=== PATIENT | male | born 1970 | race Caucasian/White ===

== ENCOUNTER 2016-11-18 08:04 | Emergency (ER) | payer BC, OTHER ==
[2016-11-18 08:16] VITALS: BP 153/100
--- NOTE | 2016-11-18 08:31 | UC ---
Throat Pain/Nasal Deion HPI - HPI Summary HPI Summary: The patient comes in today for: 1. Fever, headache, sore throat, swollen tongue, dizzy, weak, Onset: Sore throat 2 days ago. Palliative/provocative: Warm salt water helped. Baking soda and water helped. Quality: [place] Region: Posterior pharynx. Severity: 10 Time: Constant. Associated symptoms: Recent oral sex: Fiance of three years. She is not known to have any problems. He has a monogamous relationship. No known HPV or herpes or discharge at this time. 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 Fever: 2 days ago--no temperature taken. Headache: Center of the head. Present now, but he has not taken anything for it. Dyspnea: None at this time. "Feels like my system is 'suppress' at this time. " Dizzy definition: "euphoric." He has not taken anything that would make him feel euphoric. Weak: He states that he feels "blah." Rhinitis: None. Cough: None. * - History of Current Complaint Chief Complaint: UCGeneralIllness Stated Complaint: HEADACHE, SORE THROAT, AND FEVER Time Seen by Provider: 11/18/16 08:17 Hx Obtained From: Patient - Allergies/Home Medications Allergies/Adverse Reactions: Allergies Allergy/AdvReac Type Severity Reaction Status Date / Time Penicillins Allergy Severe Shortness Verified 12/13/15 13:15 of Breath Erythromycin Allergy Intermediate Shortness Verified 12/13/15 13:15 of Breath Sulfa Antibiotics Allergy Intermediate Shortness Verified 12/13/15 13:15 of Breath NSAIDs AdvReac Intermediate Anxiety Verified 12/13/15 13:15 SSRIs Allergy Severe EXTREME Uncoded 12/13/15 13:15 ANXIETY antidepressant AdvReac Intermediate dizzy Uncoded 12/13/15 13:15 PMH/Surg Hx/FS Hx/Imm Hx Previously Healthy: Yes Endocrine History Of: Denies: Diabetes, Thyroid Disease, Hyperthyroidism, Hypothyroidism, Dyslipidemia Cardiovascular History Of: Denies: Cardiac Disorders, Hypertension, Pacemaker/ICD, Myocardial Infarction , Congestive Heart Failure, Atrial Fibrillation, Deep Vein Thrombosis, Bleeding Disorders Respiratory History Of: Denies: COPD, Asthma, Bronchitis, Pneumonia, Pulmonary Embolism GI/ History Of: Denies: Gastroesophageal Reflux, Ulcer, Gastrointestinal Bleed, Gall Bladder Disease, Kidney Stones, Diverticulitis, Renal Disease, Urosepsis Neurological History Of: Denies: TIA, CVA, Dementia, Seizures, Migraine Psychological History Of: Denies: Anxiety, Depression, Bipolar Disorder, Schizophrenia, Post Traumatic Stress Disorder Cancer History Of: Denies: Lung Cancer, Colorectal Cancer, Breast Cancer, Prostate Cancer, Cervical Cancer Other History Of: Negative For: HIV, Hepatitis B, Hepatitis C, Anticoagulant Therapy - Surgical History Surgical History: None - Family History Known Family History: Positive: Cardiac Disease, Hypertension - Social History Occupation: Employed Full-time Alcohol Use: None Substance Use Type: None Smoking Status (MU): Former Smoker Have You Smoked in the Last Year: No When Did the Patient Quit Smoking/Using Tobacco: 3 YRS AGO - Immunization History Most Recent Tetanus Shot: utd Review of Systems Skin: Rash - Present for two weeks. He started his present job 4 weeks ago. Eyes: Negative ENT: Sore Throat Respiratory: Negative Cardiovascular: Negative Gastrointestinal: Negative Genitourinary: Negative All Other Systems Reviewed And Are Negative: Yes Physical Exam Triage Information Reviewed: Yes Appearance: Well-Appearing, No Pain Distress, Well-Nourished Vital Signs: Initial Vital Signs Temp 98.3 F 11/18/16 08:10 Pulse 74 11/18/16 08:10 Resp 18 11/18/16 08:10 BP 153/100 11/18/16 08:10 Pulse Ox 99 11/18/16 08:10 Vital Signs Reviewed: Yes Eyes: Positive: Conjunctiva Clear. Negative: Discharge ENT: Positive: Hearing grossly normal. Negative: Pharyngeal erythema, Nasal congestion, Nasal drainage, TM bulging, TM dull, TM red, Tonsillar swelling, Tonsillar exudate Dental: Positive: Other: - No lesions seen such as leukoplakia or thrush. No marked lesions of the tonque except possible isolated papillitis.. Negative: Gross Decay/Caries @, Dental Fracture @ Neck: Positive: Supple, Nontender, No Lymphadenopathy, Other: - Patient has a stocky body habitus. No marked tenderness to palpation of the thyroid, but the anterior neck feels more full than expected even in this stocky male.. Negative : Nuchal Rigidity Respiratory: Positive: Lungs clear, No respiratory distress, No accessory muscle use. Negative: Crackles, Wheezing Cardiovascular: Positive: RRR, No Murmur Abdomen Description: Positive: Nontender, No Organomegaly, Soft. Negative: Distended, Guarding Musculoskeletal: Positive: Strength Intact, ROM Intact, No Edema Neurological: Positive: Alert, Muscle Tone Normal Psychological: Positive: Age Appropriate Behavior, Consolable Skin: Positive: rashes - She has slight erythematous, macular rash of the distal forearms. These rashes are several in number and are less than 1 cm and slightly scaly. Diagnostics - Laboratory Diagnostic Studies Completed/Ordered: Rapid strep: (-) Throat Pain/Nasal Course/Dx - Differential Dx/Diagnosis Differential Diagnosis/HQI/PQRI: Laryngitis, Stanley's Angina, Pharyngitis, Tonsillitis Provider Diagnoses: Viral upper respiratory infection. Transient lingual papillitis. Asteatotic dermatitis. Neck fullness Discharge - Discharge Plan Condition: Stable Disposition: HOME Patient Education Materials: Upper Respiratory Infection (ED) Forms: *Work Release Referrals: Kartik Ruiz MD [Primary Care Provider] - Additional Instructions: Please see your primary care provider in the next week to see how well you are doing. Your provider can see how well your treatments are doing. And then you can be evaluated for your neck fullness. It would be important to make sure that you don't have an enlarged thyroid (thyroiditis). Please take the lidocaine as directed for your sore throat and transient lingual papillitis Please use only Dove soap while bathing.
== END 2016-11-18 09:28 | disposition home or self-care (01) ==
LOC: UCEAST 08:04
DX: J06.9 Acute upper respiratory infection, unspecified (principal); K14.0 Glossitis; L30.8 Other specified dermatitis; R22.1 Localized swelling, mass and lump, neck; Z88.1 Allergy status to other antibiotic agents; Z88.6 Allergy status to analgesic agent; Z88.0 Allergy status to penicillin; Z88.2 Allergy status to sulfonamides; Z88.8 Allergy status to other drugs, medicaments and biological substances; Z87.891 Personal history of nicotine dependence
CPT/HCPCS: 87651; 99212; G0463

== ENCOUNTER 2016-12-20 18:08 | Emergency (ER) | payer BC ==
[2016-12-20 18:29] VITALS: BP 143/95
[2016-12-20] MEDS ORDERED: diPHENhydraMINE IV* 50 MG/ML 1 ml VIAL (BENADRYL) IV ONE (18:53)
[2016-12-20] MEDS ORDERED: Famotidine IV* 10 MG/ML 2 ML (20 mg) IV SLOW PU ONE (18:54)
[2016-12-20] MEDS ORDERED: methylPREDNISolone SOD SUCC* 125 MG 2 ML VIAL IV ONE (18:54)
--- NOTE | 2016-12-21 16:11 | UC ---
Megan Joy Erika, scribed for Karmen Harrison MD on 12/20/16 at 1854 . General HPI - HPI Summary HPI Summary: Patient is a 46-year-old male presenting to [facility] with a CC of intermittent tongue and throat swelling. Patient reports symptoms for the past 4 days, including headache, dizziness lightheadedness, numbness of the head and sometimes feet, disorientation, nasal congestion, and sinus congestion. Patient also reports feeling an irregular heart beat. Pt reports that these symptoms have been worsening. Today at noon, pt began to notice the sensation of intermittent tongue and throat swelling. Pt did not have a flu shot this year. 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 Patient was seen here for similar symptoms on , which resolved after about 4 days. Pt with multiple allergies, is concerned about possible allergic reaction. 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 SO Onset/Duration: Gradual Onset, Lasting Days, Still Present Timing: Constant Current Severity: Moderate Pain Intensity: 8 Associated Signs & Symptoms: Positive: Dizziness, Headache, Other - perceived tongue and throat swelling Similar Episode/Dx as: viral syndrome Related Hx: Recent Illness - 11/18/16 - Allergy/Home Medications Allergies/Adverse Reactions: Allergies Allergy/AdvReac Type Severity Reaction Status Date / Time Penicillins Allergy Severe Anaphylatic Verified 12/20/16 18:29 Shock Erythromycin Allergy Intermediate Anaphylatic Verified 12/20/16 18:29 Shock Sulfa Antibiotics Allergy Intermediate Anaphylatic Verified 12/20/16 18:29 Shock NSAIDs AdvReac Intermediate Anxiety Verified 12/20/16 18:29 SSRIs Allergy Severe EXTREME Uncoded 12/13/15 13:15 ANXIETY antidepressant AdvReac Intermediate dizzy Uncoded 12/13/15 13:15 Home Medications: Home Medications Acetaminophen TAB* [Tylenol TAB*] 325 mg PO PRN 12/20/16 [History] PMH/Surg Hx/FS Hx/Imm Hx Previously Healthy: No - multiple allergies - Surgical History Surgical History: None - Family History Known Family History: Positive: Cardiac Disease, Hypertension - Social History Occupation: Employed Full-time Lives: With Family Alcohol Use: None Substance Use Type: None Smoking Status (MU): Former Smoker Have You Smoked in the Last Year: No When Did the Patient Quit Smoking/Using Tobacco: 3 YRS AGO - Immunization History Most Recent Tetanus Shot: utd Review of Systems Constitutional: Negative Skin: Negative Eyes: Negative ENT: Other - tongue and throat swelling, nasal congestion, sinus congestion Respiratory: Negative Cardiovascular: Palpitations Gastrointestinal: Negative Genitourinary: Negative Motor: Negative Neurovascular: Negative Musculoskeletal: Negative Neurological: Headache, Numbness - head and feet, Other - lightheadedness, dizziness, disorientation Psychological: Negative All Other Systems Reviewed And Are Negative: Yes Physical Exam Triage Information Reviewed: Yes Appearance: No Pain Distress, Well-Nourished, Ill-Appearing - mildly Vital Signs: Initial Vital Signs Temp 97.1 F 12/20/16 18:18 Pulse 72 12/20/16 18:18 Resp 18 12/20/16 18:18 BP 143/95 12/20/16 18:18 Pulse Ox 99 12/20/16 18:18 Vital Signs Reviewed: Yes Eyes: Positive: Conjunctiva Clear ENT: Positive: Pharynx normal, TMs normal, Other: - No uvula edema, pharynx clear, tongue does not appear swollen, speech is clear, no throat or neck swelling, no facial swelling Neck: Positive: Supple, Nontender, No Lymphadenopathy Respiratory: Positive: Lungs clear, Normal breath sounds, No respiratory distress, No accessory muscle use Cardiovascular: Positive: RRR, No Murmur, Pulses Normal, Brisk Capillary Refill Abdomen Description: Positive: Nontender, Soft Musculoskeletal: Positive: Strength Intact, ROM Intact, No Edema Neurological: Positive: Alert, Muscle Tone Normal, Other: - Moves all extremities well. No focal deficit. Psychological Exam: Normal Skin Exam: Normal Skin: Negative: rashes Diagnostics - Laboratory Diagnostic Studies Completed/Ordered: Rapid strep negative. Influenza A&B negative. Re-Evaluation - Re-Evaluation First Eval Re-Evaluation Time: 20:07 Change: Improved Comment: Pt is improved after Benadryl, Pepcid, and Solumedrol treatments. Subjective tongue swelling is gone, head congestion improved. Course/Dx - Course Course Of Treatment: SoluMedrol 125, benadryl 50mg (given IV, so no risk of red dye allergy), pepcid 20mg given IV - Differential Dx - Multi-Symptom Differential Diagnoses: Metabolic Abnormality, Other - anaphylaxis, allergic reaction, influenza, strep, angioedema Provider Diagnoses: acute allergic reaction. upper respiratory infection Discharge - Discharge Plan Condition: Stable Disposition: HOME Prescriptions: Famotidine TAB 40 MG(NF) [Pepcid TAB 40 MG(NF)] 40 mg PO DAILY #5 tab predniSONE TAB* [Deltasone TAB*] 40 mg PO DAILY #10 tab Patient Education Materials: General Allergic Reaction (ED) Forms: *Work Release Referrals: No Primary Care Phys,NOPCP [Primary Care Provider] - Jeramy Roach MD [Medical Doctor] - Additional Instructions: Dr. Harrison gave you SoluMedrol 125mg, Benadryl 50mg and Pepcid 20mg IV at 7:15pm You should start the prednisone and pepcid pills tomorrow. You should purchase benadryl without red dye and you should take benadryl 50mg around the clock every 6 hrs for the next [address] Harrison recommends that you should see an pedigree researcher. Dr. Acevedo is an pedigree researcher in [place]. Go to the emergency room if you have new or worsening symptoms. Your strep and influenza tests were all negative. Dr. Harrison did not feel you need an antibiotic at this time. The documentation as recorded by the Megan gonzalez Erika accurately reflects the service I personally performed and the decisions made by , Karmen Harrison MD.
== END 2016-12-20 20:27 | disposition home or self-care (01) ==
LOC: UCEAST 18:08
DX: T78.40XA Allergy, unspecified, initial encounter (principal); X58.XXXA Exposure to other specified factors, initial encounter; J06.9 Acute upper respiratory infection, unspecified; R03.0 Elevated blood-pressure reading, without diagnosis of hypertension; Z88.6 Allergy status to analgesic agent; Z88.1 Allergy status to other antibiotic agents; Z88.0 Allergy status to penicillin; Z88.2 Allergy status to sulfonamides; Z87.891 Personal history of nicotine dependence
CPT/HCPCS: 87502; 87651; 96374; 96375; 96376; 99212; G0463; J1200; J2930

== ENCOUNTER 2017-04-24 18:35 | Emergency (ER) | payer BC ==
[2017-04-24 18:57] VITALS: BP 169/90
[2017-04-24] MEDS ORDERED: Levofloxacin TAB* 500 MG PO ONE (20:13)
--- NOTE | 2017-04-24 20:27 | UC ---
Complaint Male HPI - HPI Summary HPI Summary: patient has buring and itching of the head of the penis. this has been present for some time. He is slos having some pain in the end of the penis and in the right testical. He is sexual active with 1 partner, denies any drainage from the penis - History of Current Complaint Chief Complaint: UCGU Stated Complaint: PRIVATE ISSUE Time Seen by Provider: 04/24/17 20:05 Hx Obtained From: Patient Onset/Duration: Gradual Onset, Lasting Weeks Timing: Lasting Weeks Severity Initially: Mild Severity Currently: Moderate Location: Penis Character: Burning Aggravating Factor(s): Nothing Associated Signs And Symptoms: Positive: Dysuria, Penile Swelling - had of meatus - Allergies/Home Medications Allergies/Adverse Reactions: Allergies Allergy/AdvReac Type Severity Reaction Status Date / Time Penicillins Allergy Severe Anaphylatic Verified 12/20/16 18:29 Shock Erythromycin Allergy Intermediate Anaphylatic Verified 12/20/16 18:29 Shock Sulfa Antibiotics Allergy Intermediate Anaphylatic Verified 12/20/16 18:29 Shock Ibuprofen Allergy Anxiety Verified 04/24/17 18:57 NSAIDs AdvReac Intermediate Anxiety Verified 12/20/16 18:29 SSRIs Allergy Severe EXTREME Uncoded 12/13/15 13:15 ANXIETY antidepressant AdvReac Intermediate dizzy Uncoded 12/13/15 13:15 PMH/Surg Hx/FS Hx/Imm Hx Previously Healthy: Yes Other History Of: Negative For: HIV, Hepatitis B, Hepatitis C, Anticoagulant Therapy - Surgical History Surgical History: None - Family History Known Family History: Positive: Cardiac Disease, Hypertension - Social History Alcohol Use: None Substance Use Type: None Smoking Status (MU): Former Smoker Have You Smoked in the Last Year: No When Did the Patient Quit Smoking/Using Tobacco: 3 YRS AGO - Immunization History Most Recent Tetanus Shot: utd Review of Systems Constitutional: Negative Skin: Other - head of penis and red and swollen, whitish film over the head, ENT: Negative Respiratory: Negative Cardiovascular: Negative Gastrointestinal: Negative Genitourinary: Negative Motor: Negative Neurovascular: Negative Musculoskeletal: Negative Neurological: Negative Psychological: Negative All Other Systems Reviewed And Are Negative: Yes Physical Exam Triage Information Reviewed: Yes Appearance: Well-Appearing, Well-Nourished, Pain Distress Vital Signs: Initial Vital Signs Temp 98.7 F 04/24/17 18:54 Pulse 75 04/24/17 18:54 Resp 18 04/24/17 18:54 BP 169/90 04/24/17 18:54 Pulse Ox 99 04/24/17 18:54 Vital Signs Reviewed: Yes Eye Exam: Normal ENT Exam: Normal Dental Exam: Normal Neck exam: Normal Neck: Positive: Supple, Nontender, No Lymphadenopathy Respiratory Exam: Normal Respiratory: Positive: Chest non-tender, Lungs clear, Normal breath sounds Cardiovascular Exam: Normal Cardiovascular: Positive: RRR, No Murmur, Pulses Normal Abdominal Exam: Normal Abdomen Description: Positive: Nontender, No Organomegaly, Soft Bowel Sounds: Positive: Present Musculoskeletal Exam: Normal Musculoskeletal: Positive: Strength Intact, ROM Intact, No Edema Neurological Exam: Normal Neurological: Positive: Alert, Muscle Tone Normal Psychological Exam: Normal Skin: Positive: Other - no lesions, head of penis red with white film, scrotum is non red, slightly tender. Complaint Male Course/Dx - Course Course Of Treatment: hx obtained, exam performed ,meds reviewed, swab culture obtained for yeast, treated for epiydidymitis as well due to the pain in the testes, Neg UA. - Differential Dx/Diagnosis Differential Diagnosis/HQI/PQRI: Epididymitis, Priaprism, Prostatitis, Trauma, Other - balantitis Provider Diagnoses: balantitis due to yeast. epidydimitis Discharge - Discharge Plan Condition: Stable Disposition: HOME Patient Education Materials: Epididymitis (ED), Skin Yeast Infection (ED) Additional Instructions: 1. take the medication as prescribe.d 2. Uswe the coconut oil for the topical yeast. 3. Follow up with your primary provider if symtpoms are not improving in the next few days. 4. Obstain from sex for the next week.
== END 2017-04-24 20:35 | disposition home or self-care (01) ==
LOC: UCEAST 18:35
DX: B37.42 Candidal balanitis (principal); N45.1 Epididymitis; Z87.891 Personal history of nicotine dependence
CPT/HCPCS: 99212; G0463

== ENCOUNTER 2017-11-20 15:05 | Emergency (ER) | payer BC ==
[2017-11-20 15:21] VITALS: BP 154/104
--- NOTE | 2017-11-20 15:44 | UC ---
Conrad Joy Tecjoon, scribed for Milton Richardson MD on 11/20/17 at 1536 . Head Injury HPI - HPI Summary HPI Summary: This patient is a 47 year old male presenting to [facility] accompanied by with a chief complaint of head pain s/p a mechanical fall since approx. an hour ago. Patient states that he fell and suffered head trauma. Patient denies LOC, but states things went blurry for a while. Patient states he has a headache in the back and front of head. The pain is rated 6/10 in severity. Symptoms aggravated by light. Symptoms alleviated by nothing. Patient additionally reports dizziness, nausea, fatigue, blurred vision, fogginess. Patient denies neck pain. - History Of Current Complaint Chief Complaint: UCHeadInjury Stated Complaint: FALL INJURY Time Seen by Provider: 11/20/17 15:22 Hx Obtained From: Patient Mechanism Of Injury: mechanical fall Onset/Duration: Lasting Hours - 1, Still Present Severity Currently: Moderate Severity Initially: Moderate Pain Intensity: 6 Pain Scale Used: 0-10 Numeric Aggravating Factor(s): Other - light Alleviating Factor(s): Nothing Associated Signs And Symptoms: Positive: Negative - neck pain, Other - dizziness , nausea, fatigue, blurred vision, fogginess - Allergies/Home Medications Allergies/Adverse Reactions: Allergies Allergy/AdvReac Type Severity Reaction Status Date / Time Penicillins Allergy Severe Anaphylatic Verified 11/20/17 15:21 Shock Aspirin Allergy Intermediate Anxiety Verified 11/20/17 15:21 Erythromycin Allergy Intermediate Anaphylatic Verified 11/20/17 15:21 Shock Ibuprofen Allergy Intermediate Anxiety Verified 11/20/17 15:21 Sulfa Antibiotics Allergy Intermediate Anaphylatic Verified 11/20/17 15:21 Shock NSAIDs AdvReac Intermediate Anxiety Verified 11/20/17 15:21 SSRIs Allergy Severe EXTREME Uncoded 11/20/17 15:21 ANXIETY antidepressant AdvReac Intermediate dizzy Uncoded 11/20/17 15:21 Home Medications: Home Medications NK [No Home Medications Reported] 11/20/17 [History Confirmed 11/20/17] PMH/Surg Hx/FS Hx/Imm Hx Previously Healthy: Yes Endocrine History: Other Other Endocrine History: negative: diabetes Cardiovascular History: Other Other Cardiovascular History: negative: hypertension Respiratory History: Other Other Respiratory History: negative: COPD Other History Of: Negative For: HIV, Hepatitis B, Hepatitis C, Anticoagulant Therapy - Surgical History Surgical History: None - Family History Known Family History: Positive: Cardiac Disease, Hypertension - Social History Alcohol Use: None Substance Use Type: None Smoking Status (MU): Former Smoker Have You Smoked in the Last Year: No When Did the Patient Quit Smoking/Using Tobacco: 11/2013 - Immunization History Most Recent Tetanus Shot: utd Review of Systems Constitutional: Fatigue, Other - fogginess Eyes: Blurred Vision Gastrointestinal: Nausea Neurovascular: Negative - neck pain Neurological: Headache, Other - dizziness All Other Systems Reviewed And Are Negative: Yes Physical Exam Triage Information Reviewed: Yes Vital Signs: Initial Vital Signs Temp 97.2 F 11/20/17 15:14 Pulse 71 11/20/17 15:14 Resp 16 11/20/17 15:14 BP 154/104 11/20/17 15:14 Pulse Ox 99 11/20/17 15:14 - Additional Comments General: well-appearing, no pain distress Skin: warm, color reflects adequate perfusion, dry Head: normal Eyes: EOMI, GUSTAVO ENT: normal Neck: supple, nontender Respiratory: CTA, breath sounds present Cardiovascular: RRR Abdomen: soft, nontender Bowel: present Musculoskeletal: normal, strength/ROM intact Neurological: normal, sensory/motor intact, A&O x3 Psychological: affect/mood appropriate Head Injury Course/Dx - Course Course Of Treatment: NO FOCAL NEUROLOGIC DEFICIT IN CLINIC. NO HEMOTYMPANUM. NECK NT. DISCUSSED TRANSPORT TO ED BY AMBULANCE. THE PATIENT AND HIS PREFER TO GO BY POV. THEY WILL CALL 911 IF PATIENT'S CONDITION WORSENS. DISCUSSED WITH DR KOCH IN ED. - Differential Dx/Diagnosis Provider Diagnoses: HEAD INJURY/CONCUSSION. HYPERTENSON Discharge - Discharge Plan Condition: Stable Disposition: OTHER Discharge Disposition Comment: . Patient Education Materials: Concussion (ED), Head Injury (ED) Referrals: No Primary Care Phys,NOPCP [Primary Care Provider] - Additional Instructions: GO DIRECTLY TO THE EMERGENCY DEPARTMENT FOR FOR FURTHER EVALUATION OF YOUR HEAD INJURY TO INCLUDE A CT SCAN OF YOUR HEAD. IF YOUR CONDITION WORSENS, CALL 911 FOR AN AMBULANCE. The documentation as recorded by the Conrad gonzalez Tecjoon accurately reflects the service I personally performed and the decisions made by me, Milton Richardson MD.
== END 2017-11-20 15:42 ==
LOC: UCEAST 15:05
DX: S09.90XA Unspecified injury of head, initial encounter (principal); S06.0X9A Concussion with loss of consciousness of unspecified duration, initial encounter; W19.XXXA Unspecified fall, initial encounter; Y93.9 Activity, unspecified; Y92.9 Unspecified place or not applicable; Z87.891 Personal history of nicotine dependence
CPT/HCPCS: 99212; G0463

== ENCOUNTER → 2017-11-20 16:04 | Emergency (ER) | payer BC ==
--- NOTE | 2017-11-20 17:28 | RAD ---
Indication: Head injury. CT of the brain was performed without IV contrast. Ventricular structures are midline. No midline shift is noted. The extraction spaces are unremarkable. There is no evidence of intracranial mass or hemorrhage. No other high or low density lesions are identified. Mastoid air cells are poorly pneumatized. IMPRESSION: No intracranial mass or hemorrhage is noted.
[2017-11-20 17:49] VITALS: BP 149/81
--- NOTE | 2017-11-20 18:42 | ED ---
Roberto Joy Abhishek, scribed for Shay Davis MD on 11/20/17 at 1726 . Head Injury - HPI Summary HPI Summary: This patient is a 47 year old M presenting to [facility] accompanied by with a chief complaint of head injury s/p fall since few hours ago (1414) today . The mechanism of the fall was described as backward fall from a standing height where, reportedly, the pts feet both came up as he fell backwards. As the pt fell backwards, the pt also injured the back of his head from contact with the ground. Immediately after the fall, pt reports DIGGS, neck pain (with movement), disorientation, focusing out; here and then. The pain in the head is described as localized primarily in the front, as if he had fallen forward. Symptoms aggravated by lights. Symptoms alleviated by nothing. - History Of Current Complaint Chief Complaint: EDHeadInjury Stated Complaint: POSSIBLE CONCUSSION-CC TRANSFER Time Seen by Provider: 11/20/17 16:25 Hx Obtained From: Patient, Family/Senior Etl Developer Mechanism Of Injury: Fall From A Standing Position Onset/Duration: Started Hours Ago - 1414 at 11/18/17 Onset of Pain: Hours - 141 Severity Currently: Mild Severity Initially: Mild Location of Head Injury: Frontal Aggravating Factor(s): Other: - lights Alleviating Factor(s): Other: - Nothing Associated Signs And Symptoms: Neck Pain - (with movement), Headache, Other: - disorientation, focusing out; here and then. - Risk Factors SDH Risk Factor: Male - Allergies/Home Medications Allergies/Adverse Reactions: Allergies Allergy/AdvReac Type Severity Reaction Status Date / Time Penicillins Allergy Severe Anaphylatic Verified 11/20/17 15:21 Shock Aspirin Allergy Intermediate Anxiety Verified 11/20/17 15:21 Erythromycin Allergy Intermediate Anaphylatic Verified 11/20/17 15:21 Shock Ibuprofen Allergy Intermediate Anxiety Verified 11/20/17 15:21 Sulfa Antibiotics Allergy Intermediate Anaphylatic Verified 11/20/17 15:21 Shock NSAIDs AdvReac Intermediate Anxiety Verified 11/20/17 15:21 SSRIs Allergy Severe EXTREME Uncoded 11/20/17 15:21 ANXIETY antidepressant AdvReac Intermediate dizzy Uncoded 11/20/17 15:21 PMH/Surg Hx/FS Hx/Imm Hx Endocrine/Hematology History: Denies: Hx Anticoagulant Therapy, Hx Diabetes, Hx Thyroid Disease Cardiovascular History: Denies: Hx Congestive Heart Failure, Hx Deep Vein Thrombosis, Hx Hypertension , Hx Myocardial Infarction, Hx Pacemaker/ICD Respiratory History: Reports: Hx Sleep Apnea - DX DOESN'T USE CPAP Denies: Hx Asthma, Hx Chronic Obstructive Pulmonary Disease (COPD), Hx Lung Cancer, Hx Pneumonia, Hx Pulmonary Embolism GI History: Reports: Hx Gastroesophageal Reflux Disease - HX OF R/T DIET Denies: Hx Gall Bladder Disease, Hx Gastrointestinal Bleed, Hx Ulcer, Hx Urosepsis History: Reports: Other Problems/Disorders - BALANITIS XEROTICA OBLITERANS , PHIMOSIS Denies: Hx Kidney Stones, Hx Renal Disease Sensory History: Reports: Hx Contacts or Glasses - GLASSES Denies: Hx Hearing Aid Opthamlomology History: Reports: Hx Contacts or Glasses - GLASSES Neurological History: Denies: Hx Dementia, Hx Migraine, Hx Seizures, Hx Transient Ischemic Attacks (TIA) Psychiatric History: Reports: Hx Anxiety - NO MEDS, Hx Depression - NO MEDS Denies: Hx Schizophrenia, Hx Bipolar Disorder - Surgical History Hx Anesthesia Reactions: No - NONE - Immunization History Date of Tetanus Vaccine: unknown Infectious Disease History: No Infectious Disease History: Denies: Hx Clostridium Difficile, Hx Hepatitis, Hx Human Immunodeficiency Virus (HIV), Hx of Known/Suspected MRSA, Hx Shingles, Hx Tuberculosis, Hx Known/ Suspected VRE, Hx Known/Suspected VRSA, History Other Infectious Disease, Traveled Outside the [place] in Last 30 Days - Family History Known Family History: Positive: Cardiac Disease, Hypertension - Social History Alcohol Use: None Substance Use Type: Reports: None Smoking Status (MU): Former Smoker Have You Smoked in the Last Year: No Review of Systems Constitutional: Negative Eyes: Negative ENT: Negative Cardiovascular: Negative Respiratory: Negative Gastrointestinal: Negative Genitourinary: Negative Musculoskeletal: Other - neck pain Skin: Negative Neurological: Other - disorientation Positive: Headache - Frontal region Psychological: Normal All Other Systems Reviewed And Are Negative: Yes Physical Exam - Summary Physical Exam Summary: Appearance: The patient is well-nourished in no acute distress and in no acute pain. Skin: The skin is warm and dry and skin color reflects adequate perfusion. HEENT: ~The head is normocephalic and atraumatic. The pupils are equal and reactive. The conjunctivae are clear and without drainage. ~Nares are patent and without drainage. ~Mouth reveals moist mucous membranes and the throat is without erythema and exudate. ~The external ears are intact. The ear canals are patent and without drainage. The tympanic membranes are intact. Neck: the neck is supple with full range of motion and non-tender. There are no carotid bruits. ~There is no neck vein distension. Respiratory: Chest is non-tender. ~Lungs are clear to auscultation and breath sounds are symmetrical and equal. Cardiovascular: Heart is regular rate and rhythm. ~There is no murmur or rub auscultated. ~~There is no peripheral edema and pulses are symmetrical and equal. Abdomen: The abdomen is soft and non-tender. ~There are normal bowel sounds heard in all four quadrants and there is no organomegaly palpated. Musculoskeletal: There is no back tenderness noted. ~Extremities are non-tender with full range of motion. ~There is good capillary refill. ~There is no peripheral edema or calf tenderness elicited. Neurological: Patient is alert and oriented to person, place and time. ~The patient has symmetrical motor strength in all four extremities. ~Cranial nerves are grossly intact. Deep tendon reflexes are symmetrical and equal in all four extremities. Psychiatric: The patient has an appropriate affect and does not exhibit any anxiety or depression. Triage Information Reviewed: Yes Vital Signs On Initial Exam: Initial Vitals Temp Pulse Resp BP Pulse Ox 97.7 F 73 16 158/89 99 11/20/17 16:10 11/20/17 16:10 11/20/17 16:10 11/20/17 16:10 11/20/17 16:10 Vital Signs Reviewed: Yes - Aroda Coma Scale Coma Scale Total: 15 Diagnostics - Vital Signs Vital Signs Temp Pulse Resp BP Pulse Ox 11/20/17 16:10 97.7 F 73 16 158/89 99 - Laboratory Lab Statement: Any lab studies that have been ordered have been reviewed, and results considered in the medical decision making process. - CT Brain CT CT Interpretation Completed By: Radiologist - Brain CT reveals No intracranial mass or hemorrhage is noted. ED Physician has reviewed the radiology report and agrees. Head Injury Course/Dx Course Of Treatment: Mr. Zhou presented a couple hours after head trauma with significant symtoms including a severe frontal DIGGS. He had a short bout of LOC at the time of the trauma. His head CT was normal here and he actually improved quite a bit here during his stay. - Diagnoses Provider Diagnoses: Concussion Discharge - Discharge Plan Condition: Stable Disposition: HOME Patient Education Materials: Concussion (ED) Forms: *Work Release Referrals: Jeramy Roach MD [Primary Care Provider] - (Follow up with PCP within 2 to 3 days) Additional Instructions: RETURN TO THE EMERGENCY DEPARTMENT FOR CHANGING OR WORSENING SYMPTOMS. The documentation as recorded by the Roberto gonzalez Abhishek accurately reflects the service I personally performed and the decisions made by me, Shay Davis MD.
== END | disposition home or self-care (01) ==
LOC: ED 16:04
DX: S06.0X0A Concussion without loss of consciousness, initial encounter (principal); M54.2 Cervicalgia; R51 Headache; Z87.09 Personal history of other diseases of the respiratory system; W19.XXXA Unspecified fall, initial encounter; Y92.9 Unspecified place or not applicable; Z87.891 Personal history of nicotine dependence
CPT/HCPCS: 70450; 99282

== ENCOUNTER 2018-04-05 07:29 | Day surgery (SDC) | payer BC ==
--- NOTE | 2018-04-04 13:03 | HP ---
CC: Dr. Roach * ADMITTING HISTORY AND PHYSICAL: DATE OF ADMISSION: 04/05/18 ADMITTING DIAGNOSES: 1. Phimosis. 2. Balanitis xerotica obliterans (BXO). 3. Urethral stricture. PLANNED PROCEDURE: Circumcision and meatal dilatation. SURGEON: Dr. Sanderson. HISTORY OF PRESENT ILLNESS: Jeramy Zhou is a 47-year-old gentleman who was originally evaluated in May of 2017 because of problems related to the foreskin. On examination, he was noted to have [id number] phimosis with an appearance consistent with BXO and a meatal stricture. He had undergone urethral dilatation and has continued to have problems with foreskin and would like to have a circumcision. PAST MEDICAL HISTORY: Unremarkable. PAST SURGICAL HISTORY: Unremarkable. MEDICATIONS: On admission, none. ALLERGIES: PENICILLIN, hives; SULFA, hives; ASPIRIN, anxiety; ERYTHROMYCIN; IBUPROFEN. SOCIAL HISTORY: He is a former smoker who quit 3 to 4 years ago with a 25-pack- year smoking history. PHYSICAL EXAMINATION GENERAL: Pleasant healthy-appearing middle-aged gentleman. VITAL SIGNS: Blood pressure is 124/80, pulse 66 per minute, oxygen saturation 98% on room air. LUNGS: Clear bilaterally. CARDIOVASCULAR: Regular rate and rhythm. S1, S2. ABDOMEN: Soft without masses. GENITALIA: Phallus is uncircumcised with severe phimosis with thickened, chronically inflamed-appearing foreskin and an overall appearance consistent with BXO. PLAN: I had a detailed discussion with Mr. Zhou regarding the risks of the procedure including risk of persistent or recurrent stricture and altered appearance and sensation. The plan is for circumcision and meatal dilatation. [id number]/[facility] #: [id number] [facility]
[~2018-04-05 07:29] MED LIST: Buffered Lidocaine 0.9% SYRIN* 5 ML/SYR SYRINGE INTRADERM ONE
[2018-04-05] MEDS ORDERED: Levofloxacin 500 MG IVPREMIX(* 500 MG/100 ML BAG IVPB ONE (07:42)
[2018-04-05] MEDS ORDERED: Lidocaine 1% INJ* 10 MG/ML 30 ML SDV ONE (08:48)
[2018-04-05] MEDS ORDERED: Midazolam* 1 MG/ML 5 ML VIAL (5 MG) ONE ×2 (08:59→09:56)
[2018-04-05] MEDS ORDERED: fentaNYL* 50 MCG/ML 2 ML VIAL (100 MCG VIAL) ONE (08:59)
[2018-04-05] MEDS ORDERED: Naloxone* 0.4 MG/ML 1 ML VIAL IV PRN (10:18)
[2018-04-05] MEDS ORDERED: fentaNYL* 50 MCG/ML 2 ML VIAL (100 MCG VIAL) IV PRN (10:18)
[2018-04-05] MEDS ORDERED: Acetaminophen TAB* 325 MG PO PRN (10:18)
[2018-04-05] MEDS ORDERED: oxyCODONE TAB* 5 MG TAB PO PRN (10:18)
[2018-04-05] MEDS ORDERED: Ketorolac INJ* 30 MG/ML 1 ML VIAL IV PRN (10:18)
[2018-04-05] MEDS ORDERED: Bacitracin OINTMENT* 0.5% 0.5 oz TUBE ONE (10:56)
[2018-04-05] MEDS ORDERED: Acetaminophen TAB* 325 MG ONE (14:17)
[2018-04-05 16:12] VITALS: BP 133/103
--- NOTE | 2018-04-06 09:59 | OP ---
OPERATIVE REPORT: DATE OF OPERATION: 04/05/18 DATE OF : 68 SURGEON: Jace Sanderson MD ANESTHESIOLOGIST: Fredo Olson MD ANESTHESIA: Spinal. PRE-OP DIAGNOSES: 1. Phimosis. 2. Balanitis xerotica obliterans (BXO). 3. Meatal stenosis. POST-OP DIAGNOSES: 1. Phimosis. 2. Balanitis xerotica obliterans (BXO). 3. Meatal stenosis. OPERATIVE PROCEDURE: Circumcision and meatal dilatation. INDICATIONS: Jeramy Zhou is a 47-year-old gentleman, who has had longstanding discomfort seconda ry to phimosis and to a thickened scarred foreskin with an appearance consistent with BXO. He desire s a circumcision and I have discussed the procedure in detail including possible risks of bleeding, i nfection, altered appearance and sensation, and recurrence of meatal stenosis. COMPLICATIONS: None. ESTIMATED BLOOD LOSS: Less than 25 cc. SPECIMEN: Foreskin. DESCRIPTION OF PROCEDURE: After induction of spinal anesthesia, the patient was placed on the operat ing table in supine position. External genitalia were prepped and draped in usual sterile fashion. A circumferential incision was made on the foreskin over the prominence of the coronal edges. The fo reskin was then retracted with some difficulty. The foreskin was fairly thickened and blanched with an appearance suggestive of BXO with meatal stenosis, which also corroborate the diagnosis. A second circumferential incision was made on the foreskin just proximal to the coronal edges. The foreskin between the 2 incisions was removed circumferentially. The skin edges were approximated using interr upted sutures of 3- 0 and 4-0 chromic in a circumferential fashion. Bacitracin ointment was applied. Next, attention was directed to the meatus, which was moderately stenotic. Using the urethral dilato r, the meatus was carefully dilated starting from 14 Turkish to 24 Turkish. Next, a red rubber cathete r 18-Turkish was introduced and the bladder was emptied. The patient tolerated the procedure satisfac torily and was transferred back to the recovery area in stable condition. [id number]/[facility] #: [id number]
== END 2018-04-05 16:33 | disposition home or self-care (01) ==
LOC: OR 07:29
PROVIDERS: ATTEND Urology
DX: N47.1 Phimosis (principal); N48.0 Leukoplakia of penis; N35.8 Other urethral stricture; G47.33 Obstructive sleep apnea (adult) (pediatric); Z87.891 Personal history of nicotine dependence; F32.9 Major depressive disorder, single episode, unspecified; R12 Heartburn
CPT/HCPCS: 88304; A9270-GY; J1956; J2250; J3010

== ENCOUNTER 2019-11-27 05:08 | Emergency (ER) | payer BC ==
[2019-11-27] MEDS ORDERED: NS 0.9% 1000 ML** 1,000 ML IV.FLUID IV ONE (05:13)
--- NOTE | 2019-11-27 05:19 | ED ---
Influenza-Like Illness - HPI Summary HPI Summary: Pt is a 49 y/o M presenting to the ED with a chief complaint of a flu-like illness. He states in the afternoon of 11/26/2019 he started feeling a generalized weakness with sore throat, nonproductive cough, bodyaches and some nausea. This worsened over time, and he reports abd pain, numbness in his hands , worsened nausea, and an episode of diaphoresis accompanied by chills and a headache. He currently is reporting palpitations as well. He denies edema in his legs. Did not get a flu shot. Last took a Tylenol at 0400. - History of Current Complaint Chief Complaint: EDFluSymptoms Hx Obtained From: Patient Onset/Duration: Gradual Onset, Lasting Hours, Still Present Severity: Moderate Associated Signs & Symptoms: Fever, T Max - 100.9, F/C - F, Myalgia, Cough, Sore Throat, Headache - Allergy/Home Medications Allergies/Adverse Reactions: Allergies Allergy/AdvReac Type Severity Reaction Status Date / Time erythromycin base Allergy Severe Anaphylatic Verified 11/27/19 05:15 Shock Penicillins Allergy Severe Anaphylatic Verified 11/27/19 05:15 Shock Sulfa (Sulfonamide Allergy Severe Anaphylatic Verified 11/27/19 05:15 Antibiotics) Shock aspirin Allergy Intermediate Anxiety Verified 11/27/19 05:15 ibuprofen Allergy Intermediate Anxiety Verified 11/27/19 05:15 NSAIDS (Non-Steroidal Allergy Intermediate Anxiety Verified 11/27/19 05:15 Anti-Inflamma SSRIs Allergy Severe Anxiety Uncoded 11/27/19 05:18 antidepressant AdvReac Intermediate dizzy Uncoded 11/27/19 05:15 Home Medications: Home Medications Acetaminophen [Tylenol] 1 - 2 tab PO Q8H PRN 11/27/19 [History Confirmed ] PMH/Surg Hx/FS Hx/Imm Hx Previously Healthy: Yes Endocrine/Hematology History: Denies: Hx Anticoagulant Therapy, Hx Diabetes, Hx Thyroid Disease Cardiovascular History: Denies: Hx Congestive Heart Failure, Hx Deep Vein Thrombosis, Hx Hypertension , Hx Myocardial Infarction, Hx Pacemaker/ICD Respiratory History: Reports: Hx Sleep Apnea - DX DOESN'T USE CPAP Denies: Hx Asthma, Hx Chronic Obstructive Pulmonary Disease (COPD), Hx Lung Cancer, Hx Pneumonia, Hx Pulmonary Embolism GI History: Reports: Hx Gastroesophageal Reflux Disease - HX OF R/T DIET Denies: Hx Gall Bladder Disease, Hx Gastrointestinal Bleed, Hx Ulcer, Hx Urosepsis History: Reports: Other Problems/Disorders - HX OF BALANITIS XEROTICA OBLITERANS, PHIMOSIS Denies: Hx Kidney Stones, Hx Renal Disease Sensory History: Reports: Hx Contacts or Glasses - GLASSES Denies: Hx Hearing Aid Opthamlomology History: Reports: Hx Contacts or Glasses - GLASSES Neurological History: Denies: Hx Dementia, Hx Migraine, Hx Seizures, Hx Transient Ischemic Attacks (TIA) Comment Only: Other Neuro Impairments/Disorders - HX OF PALPITATIONS WITH PANIC ATTACKS Psychiatric History: Reports: Hx Anxiety - NO MEDS, Hx Depression - NO MEDS Denies: Hx Schizophrenia, Hx Bipolar Disorder - Surgical History Surgery Procedure, Year, and Place: 2017 URETERAL DILATION, OFFICE Hx Anesthesia Reactions: No - DONE IN OFFICE - Immunization History Date of Tetanus Vaccine: unknown Infectious Disease History: No Infectious Disease History: Denies: Hx Clostridium Difficile, Hx Hepatitis, Hx Human Immunodeficiency Virus (HIV), Hx of Known/Suspected MRSA, Hx Shingles, Hx Tuberculosis, Hx Known/ Suspected VRE, Hx Known/Suspected VRSA, History Other Infectious Disease, Traveled Outside the [place] in Last 30 Days - Family History Known Family History: Positive: Cardiac Disease, Hypertension - Social History Alcohol Use: None Hx Substance Use: No Substance Use Type: Reports: None Hx Tobacco Use: Yes Smoking Status (MU): Former Smoker Type: Cigarettes Amount Used/How Often: 1 PPD FOR 26 YEARS Have You Smoked in the Last Year: No Review of Systems Positive: Fever, Chills, Skin Diaphoresis Positive: Sore Throat Positive: Palpitations Positive: Shortness Of Breath, Cough Positive: Abdominal Pain, Nausea Positive: Myalgia. Negative: Edema Positive: Headache, Weakness, Numbness All Other Systems Reviewed And Are Negative: Yes Physical Exam - Summary Physical Exam Summary: Appearance: Well-appearing, Well-nourished, lying in bed comfortably Skin: Warm, dry, no obvious rash Eyes: sclera anicteric, no conjunctival pallor ENT: mucous membranes moist, pharynx appears normal Neck: Supple, nontender Respiratory: Clear to auscultation, no signs of respiratory distress Cardiovascular: Tachycardic. No murmurs. Normal distal pulses in tibial and radial bilaterally. Abdomen: Soft, nontender, normal active bowel sounds present Musculoskeletal: Normal, Strength/ROM Intact Neurological: A&Ox3, awake and alert, mentation is normal, speech is fluent and appropriate Psychiatric: affect is normal, does not appear anxious or depressed Triage Information Reviewed: Yes Vital Signs On Initial Exam: Initial Vitals Temp Pulse Resp BP Pulse Ox 97.6 F 103 16 171/98 96 11/27/19 05:10 11/27/19 05:10 11/27/19 05:10 11/27/19 05:10 11/27/19 05:10 Vital Signs Reviewed: Yes Procedures - Sedation Patient Received Moderate/Deep Sedation with Procedure: No Diagnostics - Vital Signs Vital Signs Temp Pulse Resp BP Pulse Ox 11/27/19 05:14 101 96 11/27/19 05:13 101 146/92 96 11/27/19 05:10 97.6 F 103 16 171/98 96 - Laboratory Result Diagrams: 11/27/19 05:29 11/27/19 05:29 Lab Statement: Any lab studies that have been ordered have been reviewed, and results considered in the medical decision making process. - Radiology CXR Radiology Interpretation Completed By: ED Physician Summary of Radiographic Findings: No acute process, pending official radiology report. Flu Symptom Course/Dx - Course Course Of Treatment: Pt is a 49 y/o M presenting to the ED brought in by EMS with a chief complaint of a flu-like illness. He reports fever, chills, cough, sore throat, diaphoresis, nausea, abd pain, generalized bodyaches and weakness, headache, numbness in his hands, and palpitations. He denies edema in his legs. Physical exam nml aside from tachycardia. CXR shows: No acute process, pending official radiology report. Pt positive for Influenza A. Pt will be d/c 'ed with dx of Influenza. He is stable and agreeable with this plan. - Diagnoses Provider Diagnoses: Influenza Discharge ED - Sign-Out/Discharge Documenting (check all that apply): Patient Departure - Discharge Plan Condition: Good Disposition: HOME Prescriptions: Oseltamivir CAP* [Tamiflu CAP*] 75 mg PO BID #10 cap Patient Education Materials: Influenza (ED) Referrals: Jeramy Roach MD [Primary Care Provider] - - Billing Disposition and Condition Condition: GOOD Disposition: Home - Attestation Statements Document Initiated by Scribe: Yes Documenting Scribe: Daniela Waller Provider For Whom Ynes is Documenting (Include Credential): Shay Wright MD. Scribe Attestation: IDaniela, gerharded for Shay Wright MD. on 11/28/19 at 0538. Scribe Documentation Reviewed: Yes Provider Attestation: The documentation as recorded by the rudyibDaniela scherer accurately reflects the service I personally performed and the decisions made by me, Shay Wright MD. Status of Scribe Document: Viewed
[2019-11-27 05:42] LABS: Influenza A Molecular POSITIVE (Negative)
[2019-11-27 05:47] LABS: ABS Lymphocytes 0.5 10^3/ul (1.0-4.8); ABS Monocytes 1.1 10^3/ul (0-0.8); ABS Neutrophils 7.2 10^3/ul (1.5-7.7); Eosinophil % 0.3 %; Hematocrit 43 % (42-52); Hemoglobin 15.3 g/dL (14.0-18.0); Lymphocyte % 5.8 %; Mean Corpuscular HGB Conc 36 g/dL (31-36); Mean Corpuscular Hemoglobin 30 pg (27-31); Mean Corpuscular Volume 85 fL (80-94); Platelet Count 202 10^3/uL (150-450); Red Blood Count 5.08 10^6 /uL (4.18-5.48); Red Cell Distribution Width 13 % (10-15); White Blood Count 8.9 10^3/uL (3.5-10.8)
[2019-11-27 05:52] LABS: Albumin 4.3 g/dL (3.2-5.2); Albumin/Globulin Ratio 1.4 (1-3); BUN/Creatinine Ratio 12.3 (8-20); EGFR African American 82.3 (>60); Potassium 3.8 mmol/L (3.5-5.0); Total Bilirubin 0.8 mg/dL (0.2-1.0); Total Protein 7.3 g/dL (6.4-8.9)
[2019-11-27] MEDS ORDERED: Oseltamivir CAP* 75 MG CAP PO ONE (06:03)
[2019-11-27 06:33] VITALS: BP 136/78
== END 2019-11-27 06:31 | disposition home or self-care (01) ==
LOC: ED 05:08
DX: J11.1 Influenza due to unidentified influenza virus with other respiratory manifestations (principal); R50.9 Fever, unspecified; Z87.891 Personal history of nicotine dependence; R00.2 Palpitations; R06.02 Shortness of breath; R51 Headache
CPT/HCPCS: 36415; 71046; 80053; 85025; 96360; 99283; A9270-GY

== ENCOUNTER 2023-06-21 14:14 | Inpatient (IN) ==
[2023-06-21 15:28] LABS: ABS Lymphocytes 1.8 10^3/uL (1.0-4.8); ABS Monocytes 0.6 10^3/uL (0.0-1.1); ABS Neutrophils 7.6 10^3/uL (1.5-7.6); ABS Nucleated RBC 0.03 10^3/ul; Eosinophil % 0.2 %; Hematocrit 45.5 % (38-53); Hemoglobin 16.1 g/dL (13.2-16.3); Lymphocyte % 18.2 %; Mean Corpuscular Hemoglobin 29.7 pg (27-33); Mean Corpuscular Hgb Conc 35.4 g/dL (31-36); Mean Corpuscular Volume 83.8 fL (80-97); Mean Platelet Volume 8.6 fL (7.5-11.2); Nucleated Red Blood Cells % 0.3 /100 WBC (0.0-0.4); Platelet Count 211 10^3/uL (150-450); Red Blood Count 5.43 10^6/uL (4.06-5.63); Red Cell Distribution Width 14.2 % (12-17); White Blood Count 10.1 10^3/uL (3.6-10.2)
[2023-06-21 15:45] LABS: ALT 13 U/L (7-52); AST 15 U/L (13-39); Albumin 5.1 g/dL (3.2-5.2); Albumin/Globulin Ratio 1.7 (1-3); Alkaline Phosphatase 43 U/L (35-149); Anion Gap 12 mmol/L (2-16); Blood Urea Nitrogen 13 mg/dL (6-24); CO2 Carbon Dioxide 22 mmol/L (22-32); Calcium 9.8 mg/dL (8.6-10.3); Chloride 102 mmol/L (101-111); Creatinine, Serum 1.16 mg/dL (0.67-1.17); Glucose 103 mg/dL (70-100); Potassium 3.8 mmol/L (3.5-5.0); Sodium 136 mmol/L (135-145); Total Protein 8.1 g/dL (6.4-8.9); eGFR CKD-EPI 75.3 (>60)
[2023-06-21 15:52] LABS: Urine Appearance Clear; Urine Bilirubin Negative (Negative); Urine Blood Negative (Negative); Urine Color Yellow; Urine Glucose Negative (Negative); Urine Ketones 1+ (Negative); Urine Nitrite Negative (Negative); Urine Protein Negative (Negative); Urine Specific Gravity 1.013 (1.002-1.030); Urine Urobilinogen Negative (Negative)
[2023-06-21 16:06] LABS: Urine Benzodiazepine Screen None Detected (None Detect); Urine Cannabinoids Screen None Detected (None Detect); Urine Opiates Screen None Detected (None Detect)
[2023-06-21 16:19] LABS: Acetaminophen < 15 mcg/mL; Alcohol, S < 13 mg/dL (<13); Salicylate < 2.50 mg/dL (<30)
[2023-06-21 16:33] LABS: TSH Ultra Thyroid Stim Horm 1.73 mcIU/mL (0.34-5.60)
[2023-06-21] MEDS ORDERED: Al Hydrox/Mg Hydrox/Simet LIQ 30 ML UDC PO PRN (17:43)
[2023-06-24 09:38] VITALS: BP 115/83
== END 2023-06-24 14:05 | disposition home or self-care (01) | DRG 880 ==
LOC: ED 14:14 → EDHOLD 17:43 → BSU 18:30
PROVIDERS: ADMIT Psychiatry & Neurology Psychiatry; ATTEND Psychiatry & Neurology Psychiatry

== ENCOUNTER 2023-10-10 18:47 | Observation (INO) ==
[2023-10-10 20:25] LABS: INR 1.09 (0.83-1.13)
[2023-10-10 21:01] LABS: ABS Eosinophils 0.1 10^3/uL (0.0-0.5); ABS Lymphocytes 1.8 10^3/uL (1.0-4.8); ABS Monocytes 0.6 10^3/uL (0.0-1.1); ABS Neutrophils 6.7 10^3/uL (1.5-7.6); ABS Nucleated RBC 0.02 10^3/ul; Eosinophil % 0.6 %; Hematocrit 44.4 % (38-53); Hemoglobin 15.6 g/dL (13.2-16.3); Lymphocyte % 19.6 %; Mean Corpuscular Hemoglobin 29.9 pg (27-33); Mean Corpuscular Hgb Conc 35.1 g/dL (31-36); Mean Corpuscular Volume 85.2 fL (80-97); Mean Platelet Volume 9.3 fL (7.5-11.2); Nucleated Red Blood Cells % 0.2 %/100WBC (0.0-0.8); Platelet Count 248 10^3/uL (150-450); Red Blood Count 5.21 10^6/uL (4.06-5.63); White Blood Count 9.3 10^3/uL (3.6-10.2)
[2023-10-10] MEDS ORDERED: Dexamethasone IV 4 MG/ML VIAL 1 ml VIAL IV SLOW PU ONE (21:09)
[2023-10-10] MEDS ORDERED: cefTRIAXone 1 gm/50 mL D5W 1 GM/50 ML BAG IV ONE (21:10)
[2023-10-10 21:20] LABS: ALT 19 U/L (7-52); AST 19 U/L (13-39); Albumin 4.6 g/dL (3.2-5.2); Albumin/Globulin Ratio 1.5 (1-3); Alkaline Phosphatase 44 U/L (35-149); Anion Gap 10 mmol/L (2-16); Blood Urea Nitrogen 14 mg/dL (6-24); C Reactive Protein < 1.00 mg/L (<8.01); CO2 Carbon Dioxide 26 mmol/L (22-32); Calcium 9.7 mg/dL (8.6-10.3); Chloride 102 mmol/L (101-111); Creatinine, Serum 1.08 mg/dL (0.67-1.17); Globulin 3.1 g/dL (2-4); Glucose 101 mg/dL (70-100); Potassium 3.5 mmol/L (3.5-5.0); Sodium 138 mmol/L (135-145); Total Bilirubin 0.6 mg/dL (0.2-1.0); Total Protein 7.7 g/dL (6.4-8.9); eGFR CKD-EPI 81.5 (>60)
[2023-10-10] MEDS ORDERED: carBAMazepine 100mg CHEWTAB PO ONE (21:54)
[2023-10-11 02:24] LABS: Erythrocyte Sed Rate 1 mm/Hr (0-19)
[2023-10-11 07:29] VITALS: BP 143/85
[2023-10-11] MEDS ORDERED: carBAMazepine 100mg CHEWTAB PO ONE (09:00)
== END 2023-10-11 10:36 | disposition home or self-care (01) ==
LOC: EDHOLD 18:47 → ED 18:47 → EDHOLD 10-11 10:35
PROVIDERS: ADMIT Internal Medicine; ATTEND Student in an Organized Health Care Education/Training Program

== ENCOUNTER 2023-10-13 22:24 | Inpatient (IN) ==
[2023-10-13 23:59] LABS: ABS Eosinophils 0.1 10^3/uL (0.0-0.5); ABS Lymphocytes 2.9 10^3/uL (1.0-4.8); ABS Monocytes 0.7 10^3/uL (0.0-1.1); ABS Neutrophils 6.4 10^3/uL (1.5-7.6); ABS Nucleated RBC 0.01 10^3/ul; Hematocrit 41.7 % (38-53); Hemoglobin 14.6 g/dL (13.2-16.3); Lymphocyte % 28.8 %; Mean Corpuscular Hemoglobin 29.8 pg (27-33); Mean Corpuscular Hgb Conc 34.9 g/dL (31-36); Mean Corpuscular Volume 85.4 fL (80-97); Mean Platelet Volume 8.9 fL (7.5-11.2); Nucleated Red Blood Cells % 0.1 %/100WBC (0.0-0.8); Platelet Count 232 10^3/uL (150-450); Red Blood Count 4.89 10^6/uL (4.06-5.63); Red Cell Distribution Width 13.8 % (12-17); White Blood Count 10.2 10^3/uL (3.6-10.2)
[2023-10-14 00:17] LABS: Urine Benzodiazepine Screen None Detected (None Detect); Urine Cannabinoids Screen None Detected (None Detect); Urine Opiates Screen None Detected (None Detect)
[2023-10-14 00:34] LABS: Acetaminophen < 15 mcg/mL; Alcohol, S < 13 mg/dL (<13); Salicylate < 2.50 mg/dL (<30)
[2023-10-14 00:43] LABS: Urine Appearance Clear; Urine Bilirubin Negative (Negative); Urine Blood Negative (Negative); Urine Color Straw; Urine Glucose Negative (Negative); Urine Ketones Negative (Negative); Urine Nitrite Negative (Negative); Urine Protein Negative (Negative); Urine Specific Gravity 1.006 (1.002-1.030); Urine Urobilinogen Negative (Negative)
[2023-10-14 00:50] LABS: TSH Ultra Thyroid Stim Horm 1.78 mcIU/mL (0.34-5.60)
[2023-10-14 01:35] LABS: ALT 17 U/L (7-52); Albumin 4.3 g/dL (3.2-5.2); Albumin/Globulin Ratio 1.4 (1-3); Alkaline Phosphatase 38 U/L (35-149); Blood Urea Nitrogen 19 mg/dL (6-24); CO2 Carbon Dioxide 24 mmol/L (22-32); Calcium 9.4 mg/dL (8.6-10.3); Chloride 103 mmol/L (101-111); Creatinine, Serum 0.99 mg/dL (0.67-1.17); Glucose 97 mg/dL (70-100); Sodium 135 mmol/L (135-145); Total Bilirubin 0.5 mg/dL (0.2-1.0); Total Protein 7.3 g/dL (6.4-8.9); eGFR CKD-EPI 90.5 (>60)
[2023-10-14 02:00] LABS: AST 14 U/L (13-39); Anion Gap 8 mmol/L (2-16); Potassium 3.7 mmol/L (3.5-5.0)
[2023-10-14] MEDS ORDERED: Al Hydrox/Mg Hydrox/Simet LIQ 30 ML UDC PO PRN (02:00)
[2023-10-14] MEDS: Vitamin THERAPEUTIC TAB PO SCH (08:18)
[2023-10-14] MEDS ORDERED: EPINEPHrine Anaphylaxis SYR CERTADOSE SYR KIT IM PRN (09:01)
[2023-10-15] MEDS: Vitamin THERAPEUTIC TAB PO SCH (08:07)
[2023-10-15 10:54] VITALS: BP 104/68
[2023-10-16] MEDS: Vitamin THERAPEUTIC TAB PO SCH (08:38)
[2023-10-16] MEDS ORDERED: Polyethylene Glycol 3350 17 GM PACKET PO PRN (18:50)
[2023-10-17] MEDS ORDERED: Polyethylene Glycol 3350 17 GM PACKET ONE (06:32)
[2023-10-17] MEDS: Polyethylene Glycol 3350 17 GM PACKET PO SCH ×2 (06:34→07:36)
[2023-10-17] MEDS: Vitamin THERAPEUTIC TAB PO SCH (09:04)
== END 2023-10-17 17:47 | disposition home or self-care (01) | DRG 880 ==
LOC: ED 22:24 → EDHOLD 10-14 01:50 → BSU 10-14 02:19
PROVIDERS: ADMIT Psychiatry & Neurology Psychiatry; ATTEND Psychiatry & Neurology Psychiatry